=== PATIENT | female | born 1995 | race Caucasian/White ===

== ENCOUNTER 2023-08-04 18:53 | Outpatient (REF) | payer OTHER, SELFPAY ==
[2023-08-11 12:08] LABS: Age Gdln ACOG Testing Note (.); HPV Aptima Negative (Negative); IGP, Aptima HPV, rfx 16/18,45 Note (.)
== END 2023-08-04 18:54 | disposition home or self-care (01) ==
LOC: LAB 18:53
PROVIDERS: Visit Provider Physician Assistant
DX: Z01.419 Encounter for gynecological examination (general) (routine) without abnormal findings (principal)
CPT/HCPCS: 87624; G0145

== ENCOUNTER 2024-12-12 18:23 | Outpatient (REF) | payer OTHER, SELFPAY ==
--- OUTSIDE RECORDS SUMMARY | 2024-12-12 18:30 | XMS_ITS | CCD ---
Author Organization [facility]ini[facility] Care Team Providers Care Technical Staff Assistant Name Role Phone DR TORRIE DOCTOR Primary Care Unavailable DR JAIDA DUMONT Attending Unavailable DR JAIDA DUMONT Consulting Unavailable DR JAIDA DUMONT Admitting Unavailable ELIZABETH KIRAN Attending Unavailable Ariella Rojas MD Primary Care Provider Medications Current Medications Medication Drug Class(es) Dates Sig (Normalized) Sig (Original) acyclovir 400 mg oral tablet (5 sources) Herpesvirus Nucleoside Analog DNA Polymerase Inhibitor, Herpes Simplex Virus Nucleoside Analog DNA Polymerase Inhibitor, Herpes Zoster Virus Nucleoside Analog DNA Polymerase Inhibitor Start: 12-12-2024 End: 01-11-2025 take 1 tablet by mouth in the morning acyclovir (Zovirax) 400 MG tablet Indications: Exposure to sexually transmitted disease (STD) Take 1 tablet (400 mg) by mouth in the morning and 1 tablet (400 mg) before bedtime. 60 tablet 1 12/12/2024 01/11/2025 Active ARIPiprazole 10 mg oral tablet (3 sources) Atypical Antipsychotic Start: 05-02-2023 ARIPiprazole (Abilify) 10 MG tablet 05/02/2023 Active busPIRone hydrochloride 10 mg oral tablet (3 sources) Start: 04-16-2023 busPIRone (Buspar) 10 MG tablet take 1 tablet by mouth twice a day (UPON AWAKENING AND AT 5-6 PM) 04/16/2023 Active lamoTRIgine 25 mg oral tablet (3 sources) Mood Stabilizer, Anti-epileptic Agent Start: 03-24-2023 take 1 tablet by mouth in the morning lamoTRIgine (LaMICtal) 25 MG tablet Take 25 mg by mouth in the morning and 25 mg before bedtime. 03/24/2023 Active Problems Active Problems Problem Classification Problem Date Documented Date Episodic/Chronic Immunizations and screening for infectious disease (6 sources) Encounter for screening for human papillomavirus (HPV); Translations: [Encounter for screening for infections with a predominantly sexual mode of transmission] Onset: 05-05-2022 12-12-2024 Episodic Other female genital disorders (1 source) Other specified noninflammatory disorders of vagina; Translations: [OTH SPEC NONINFLAMMATORY D/O VAGINA] Onset: 05-05-2022 Episodic Other screening for suspected conditions (not mental disorders or infectious disease) (4 sources) Encounter for screening for malignant neoplasm of cervix; Translations: [ENC SCREENING MALIG NEOPLASM CERV] Onset: 05-04-2022 Episodic Viral infection (3 sources) Herpetic vulvovaginitis; Translations: [Herpesviral vulvovaginitis] Onset: 04-29-2023 04-29-2023 Chronic Past or Other Problems Problem Classification Problem Date Documented Date Episodic/Chronic Other female genital disorders (3 sources) Noninflammatory disorder of the vagina; Translations: [Other specified noninflammatory disorders of vagina] Onset: 04-29-2023 04-29-2023 Episodic Results Test Name Value Interpretation Reference Range Facility Urinalysis macro (dipstick) panel (U)on 12-12-2024 Bilirubin, UA Negative Negative - 4(70) +++ mg/dL [facility] Blood, UA Negative Negative - 50 Shailesh/mcL [facility] Clarity, UA Clear [facility] re Color, UA [facility] e Glucose, UA Negative Negative - 1999(110) ++++ mg/dL [facility] Interpretation and review of laboratory results Normal [facility] Ketones, UA Negative Negative - 160(16) ++++ mg/dL [facility] Leukocytes, UA Positive Negative - 500+++ Lorenza/mcL [facility] Comment on above: small Nitrite, UA Negative Negative - Positive [facility] pH, UA 6.5 5 - 9 [facility] e Protein, UA Negative Negative - 1999(20) ++++ mg/dL [facility] Spec Grav, UA 1.01 1 - 1.03 [facility] Urobilinogen, UA 0.2 0.2 - 12 mg/dL [facility] Cervical or vaginal smear or scraping studyon 08-04-2023 [facility] e PAP ACOG PANEL 2: 21 to 29on 05-11-2022 . . Normal [facility] Comment on above: Performed By: #### [id number] #### [facility] [address] [place] [address] Dr. Carla Powell Age Gdln ACOG Testing [facility] Comment on above: Performed By: #### [id number] #### [facility] [address] [place] [address] Dr. Carla Powell DIAGNOSIS: Comment [facility] Comment on above: Result Comment: NEGA TIVE FOR INTRAEPITHELIAL LESION OR MALIGNANCY. Performed By: #### [id number] #### [facility] [address] [place] [address] Dr. Carla Powell Methodology: Comment [facility] Comment on above: Result Comment: This liquid based ThinPrep(R) pap test was screened with the use of an image guided system. Performed By: #### [id number] #### [facility] [address] [place] [address] Dr. Carla Powell Note: Comment [facility] Comment on above: Result Comment: The Pap smear is a screening test designed to aid in the detection of premalignant and malignant conditions of the uterine cervix. It is not a diagnostic procedure and should not be used as the sole means of detecting cervical cancer. Both false-positive and false-negative reports do occur. . Performed By: #### [id number] #### [facility] [address] [place] [address] Dr. Carla Powell Performed by: Comment Normal [facility] Comment on above: Result Comment: Rl Paez Human Resources Services Specialist (ASCP) Performed By: #### [id number] #### [facility] [address] [place] [address] Dr. Carla Powell Reflex Criteria: Comment [facility] Comment on above: Result Comment: The HPV DNA reflex criteria were not met with this specimen result therefore, no HPV testing was performed. . Performed By: #### [id number] #### [facility] [address] [place] [address] Dr. Carla Powell Specimen adequacy: Comment Normal [facility] Comment on above: Result Comment: Sati sfactory for evaluation. Endocervical and/or squamous metaplastic cells (endocervical component) are present. Performed By: #### [id number] #### [facility] [address] [place] [address] Dr. Carla Powell CHLAMYDIA/GONOCOCCUS TREVIN ( AB/URINE/PAPon 05-07-2022 Chlamydia trachomatis, TREVIN Negative Normal Negative [facility] Comment on above: Performed By: #### C T/NGNA #### [facility] [address] [place] [address] Dr. Carla Powell Neisseria gonorrhoeae, TREVIN Negative Normal Negative [facility] Comment on above: Performed By: #### C T/NGNA #### [facility] [address] [place] [address] Dr. Carla Powell VAGINITIS/VAGINOSIS DNA PROB Haroon 05-07-2022 Rina species Negative Normal Negative [facility] Comment on above: Performed By: #### V AGINT #### [facility] [address] [place] [address] Dr. Carla Powell Gardnerella vaginalis Negative Normal Negative [facility] Comment on above: Performed By: #### V AGINT #### [facility] [address] [place] [address] Dr. Carla Powell Trichomonas vaginalis Negative Normal Negative [facility] Comment on above: Performed By: #### V AGINT #### [facility] [address] [place] [address] Dr. Carla Powell Encounters Encounter Date Encounter Type Care Provider Facility Start: 12-12-2024 End: 12-12-2024 Bamboo flowsheet Elizabeth BEARD Work Phone: [facility] Start: 12-12-2024 End: 12-12-2024 Bamboo flowsheet Elizabeth BEARD Work Phone: [facility] Start: 12-12-2024 End: 12-12-2024 Patient encounter procedure Elizabeth BEARD Work Phone: [facility] Start: 12-12-2024 End: 12-12-2024 Periodic preventive med est patient 18-39 yrs Elizabeth BEARD Work Phone: [facility] Comment on above: Well woman exam with routine gynecological exam; Exposure to STD; Exposure to sexually transmitted disease (STD) Start: 08-04-2023 End: 08-04-2023 ambulatory ELIZABETH KIRAN Not Available Start: 05-04-2022 End: 05-04-[address] [facility] [place]: Procedures Date Procedure Procedure Detail Performing Clinician Start: 12-12-2024 Urnls dip stick/tabl et rgnt non-auto w/o micrscp Elizabeth BEARD Work Phone: Start: 08-04-2023 Microscopic observat ion [Identifier] in Cervix by Cyto stain Elizabeth BEARD Work Phone: Start: 08-04-2023 Cytp cerv/vag auto t hin layer prep mnl screen Jaida Nicolettenuvia ESPINOSA Work Phone: Plan of Treatment Date Care Activity Detail Author Start: 08-04-2028 Screening for malign ant neoplasm of cervix [facility] Start: 05-14-2025 Influenza vaccination Influenz a Vaccine (Season Ended) [facility] Start: 12-12-2024 End: 12-12-2024 Patient encounter procedure 12/12/2024 2:00 PM EDT Office Visit [facility] [address] [address] Elizabeth Kiran PA [address] [place] [address] Arrived [facility] Comment on above: Arrived Start: 2023 Screening for malign ant neoplasm of cervix [facility] Start: 2014 Screening for malign ant neoplasm of cervix Pap Smear [facility] CHLAMYDIA TRACHOMATI S (GENITO/STI) CHLAMYDIA TRACHOMATIS (GENITO/STI) Lab Routine Exposure to STD Ordered: 12/12/2024 [facility] Comment on above: Ordered: 12/12/2024 Human papilloma viru s DNA [Presence] in Unspecified specimen by Probe with amplification HPV DNA probe, amplified Microbiology Routine Well woman exam with routine gynecological exam Ordered: 12/12/2024 [facility] Work Phone: Comment on above: Ordered: 12/12/2024 Neisseria gonorrhoea e DNA [Presence] in Unspecified specimen by TREVIN with probe detection Neisseria gonorrhea DNA probe, direct Lab Routine Exposure to STD Ordered: 12/12/2024 [facility] Comment on above: Ordered: 12/12/2024 SURESWAB(R) ADVANCED VAGINITIS PLUS, TMA SURESWAB(R) ADVANCED VAGINITIS PLUS, TMA Pathology and Cytology Routine Exposure to STD Ordered: 12/12/2024 [facility] Comment on above: Ordered: 12/12/2024 Payers Date Payer Category Payer Medicaid (Managed Care) [employer] [id number] 1993 Unknown [id number] 1993 Unknown [id number] 1959 Unknown [id number] Social History Date Type Detail Facility Start: 04-30-2023 Tobacco smoking stat [facility] Never smoked tobacco [facility] Start: 04-30-2023 Tobacco use and exposure Smoke less tobacco non-user [facility] Start: 08-04-2023 End: 12-12-2024 Alcoholic beverage intake Lifetime non-drinker (finding) [facility] Start: 08-04-2023 End: 12-12-2024 History of Social function [facility] Start: 08-04-2023 End: 12-12-2024 Tobacco use panel [facility] Start: 1995 Sex assigned at Not on file [facility] History of Present illness Narrative 12-12-2024 KISHA Villanueva - 12/12/2024 2:00 PM EDT Note Date & Type Note Facility 12-12-2024 History of Presen t illness Narrative Reason for Appointment: Patient ID: Constanza Iglesias is a 29 y.o. female who presents for Gynecologic Exam Patient presents today for Annual Exam. MEDICATIONS Current Outpatient Medications Medication Instructions acyclovir (ZOVIRAX) 400 mg, Oral, 2 times daily ARIPiprazole (Abilify) 10 MG tablet busPIRone (Buspar) 10 MG tablet take 1 tablet by mouth twice a day (UPON AWAKENING AND AT 5-6 PM) lamoTRIgine (LAMICTAL) 25 mg, Oral, 2 times daily ALLERGIES No Known Allergies PROBLEMS Active Ambulatory Problems Diagnosis Date Noted Herpetic vulvovaginitis 04/29/2023 Other specified noninflammatory disorders of vagina 04/29/2023 Resolved Ambulatory Problems Diagnosis Date Noted No Resolved Ambulatory Problems Past Medical History: Diagnosis Date Clear vaginal discharge Depression screening Encounter for insertion of Mirena IUD 10/01/2020 Family planning Herpes simplex vulvovaginitis Screen for STD (sexually transmitted disease) Well woman exam HISTORY PAST MEDICAL HISTORY SOCIAL HISTORY Past Medical History: Diagnosis Date Clear vaginal discharge Depression screening Encounter for insertion of Mirena IUD 10/01/2020 Family planning Herpes simplex vulvovaginitis Screen for STD (sexually transmitted disease) Well woman exam Social History Tobacco Use Smoking status: Never Smokeless tobacco: Never Substance Use Topics Alcohol use: Never Drug use: Never FAMILY HISTORY Family History Problem Relation Name Age of Onset Heart disease Mother Cancer Mother No Known Problems Brother Cancer Maternal Grandmother Cancer Maternal Grandfather SURGICAL HISTORY History reviewed. No pertinent surgical history. REVIEW OF SYSTEMS Review of Systems: Review of Systems Constitutional: Negative. HENT: Negative. Eyes: Negative. Respiratory: Negative. Cardiovascular: Negative. Gastrointestinal: Negative. Genitourinary: Negative. Musculoskeletal: Negative. Skin: Negative. Neurological: Negative. All other systems reviewed and are negative. Hematological: Negative. Endocrine: Negative. Allergic/Immunologic: Negative. OBJECTIVE Objective: Physical Exam Constitutional: Appearance: Normal appearance. Genitourinary: Right Adnexa: not tender and no mass present. Left Adnexa: not tender and no mass present. No cervical discharge. Breasts: Breasts are soft. Right: Normal. Left: Normal. HENT: Head: Normocephalic. Nose: Nose normal. Mouth/Throat: Mouth: Mucous membranes are moist. Cardiovascular: Rate and Rhythm: Normal rate. Pulmonary: Effort: Pulmonary effort is normal. Abdominal: General: Bowel sounds are normal. Palpations: Abdomen is soft. Musculoskeletal: General: Normal range of motion. Cervical back: Normal range of motion. Neurological: General: No focal deficit present. Mental Status: She is alert. Skin: General: Skin is warm and dry. Psychiatric: Mood and Affect: Mood normal. Vitals and nursing note reviewed. Exam conducted with a bobj developer present. Vitals: Estimated body mass index is 17.58 kg/m as calculated from the following: Height as of 08/04/23: 5'. Weight as of 08/04/23: 90 lb. BP: No LMP recorded. ASSESSMENT & PLAN ICD-10-CM 1. Well woman exam with routine gynecological exam Z01.419 HPV DNA probe, amplified POCT urinalysis dipstick manually resulted Annual Exam: Patient presents today for an annual exam. Patient states she is doing well and has no complaints. Pap was obtained without difficulty. Orders Placed This Encounter Procedures HPV DNA probe, amplified POCT urinalysis dipstick manually resulted Follow Up: Patient is to return in one year for annual unless needed otherwise. Documented by Ct Zapata MA on behalf of: KISHA Villanueva documented in this encounter [facility] Evaluation note Note Date & Type Note Facility Evaluation note Diagnosis Well woman exam with routine gynecological exam Routine gynecological examination Exposure to STD Exposure to sexually transmitted disease (STD) Contact with or exposure to venereal diseases documented in this encounter [facility] Summary Purpose Family History No Family History Records FoundNo Family History Records Found Advance Directives No Advanced Directives Records FoundNo Advanced Directives Records Found Additional Source Comments INFORMATION SOURCE (unrecogn ized section and content) DATE CREATED AUTHOR 05/12/2022 [facility] DATE CREATED AUTHOR 'S ORGANIZ ATION 08/06/2023 [facility] [employer] Care Teams (unrecognized sec tion and content) Technical Staff Assistant Relationship Specialty Start Date End Date Ariella Rojas MD [address] [place] [address] PCP - General Pediatrics 04/01/23 Technical Staff Assistant Relationship Specialty Start Date End Date Ariella Rojas MD [address] [place] [address] PCP - General Pediatrics 04/01/23 Reason for Visit (unrecogniz ed section and content) Reason Comments Gynecologic Exam FOR RECORDS PERTAINING TO PATIENTS WHO ARE OR HAVE BEEN ENROLLED IN A CHEMICAL DEPENDENCY/SUBSTANCEABUSE PROGRAM, SOME INFORMATION MAY BE OMITTED. This clinical summary was aggregated from multiple sources. Caution should be exercised in using it in the provision of clinical care. This summary normalizes information from multiple sources, and as a consequence, information in this document may materially change the coding, format and clinical context of patient data. In addition, data may be omitted in some cases. CLINICAL DECISIONS SHOULD BE BASED ON THE PRIMARY CLINICAL RECORDS. [facility]. provides no warranty or guarantee of the accuracy or completeness of information in this document.
[2024-12-18 17:08] LABS: Age Gdln ACOG Testing Note (.); HPV Aptima Positive (Negative); IGP, Aptima HPV, rfx 16/18,45 Note (.)
== END 2024-12-12 18:24 | disposition home or self-care (01) ==
LOC: LAB 18:23
PROVIDERS: Visit Provider Physician Assistant
DX: Z01.419 Encounter for gynecological examination (general) (routine) without abnormal findings (principal)
CPT/HCPCS: 87624; 88175

== ENCOUNTER 2025-01-01 13:46 | Outpatient (REF) | payer OTHER, SELFPAY | END 2025-01-01 13:47 | disposition home or self-care (01) | LOC: LAB 13:46 | PROVIDERS: Visit Provider Obstetrics & Gynecology | DX: R87.610 Atypical squamous cells of undetermined significance on cytologic smear of cervix (ASC-US) (principal) | CPT/HCPCS: 88305 ==